=== PATIENT | male | born 1950 | race Caucasian/White ===

== ENCOUNTER 2016-08-30 13:35 | Emergency (ER) | payer OTHER ==
[~2016-08-30] VITALS: Ht 170.2 cm; Wt 74.1 kg
[~2016-08-30 13:35] MED LIST: AMBIEN5 MG PO; ANCEF,KEFZ2 GM/100 M IV; ATRIPLA1 TAB PO; Atripla PO; BACTRIM,SEPT1 TABLET PO; CIPRO500 MG PO; CLEOCIN300 MG PO; COD LIVER OIL118 ML PO; COUMADIN1 MG PO; COUMADIN3 MG PO; CRESTOR5 MG PO; FERROUS SULFAT325 MG PO; FOLIC ACID1 MG PO; Folvite PO; GABAPENTIN100 MG PO; HUMALOG100 UNIT/1 SC; HUMALOG100 UNIT/2 SC; INVanz IV; ISENTRESS400 MG PO; K-DUR20 MEQ PO; LANTUS 3 M100 UNITS/ SC; LANTUS 3 M100 UNITS1 SC; LANTUS100 UNIT/1 SQ; LEVEMIR FL100 UNIT/1 SC; LEVEMIR FL100 UNITS/ SC; LEVEMIR100 UNIT/2 SC; LEXAPRO10 MG PO; LIPITOR40 MG PO; LISINOPRIL10 MG PO; LISINOPRIL2.5 MG PO; LISINOPRIL5 MG PO; LOPERAMIDE2 MG PO; LOPRESSOR25 MG PO; Lexapro PO; NAFCIL 2 G2 GM/100 M IV; NAFCIL2 GM IV; NORVIR100 M1 PO; NOVOLOG PE100 UNITS/ SC; OMEPRAZOLE10 M1 PO; Omnicef PO; PREZISTA800 MG PO; Roxicet,Percocet 5/3 PO; SALINE FLUSH 1010 ML IV; TRIUMEQ TABLET1 EACH PO; TYLENOL EXTRA500 MG PO; VANCOMYCIN1.25 GM/25 IV; VITAMIN D1000 INTUN PO; VITAMIN D31000 UNIT PO; VITAMIN D310000 UNI1 PO; XARELTO20 MG PO; ZOLPIDEM TARTRAT5 MG PO
[2016-08-30 14:17] LABS: BASOPHIL COUNT 0.1 K/uL (0-0.1); EOSINOPHIL (%) 1.4 % (0-5); EOSINOPHIL COUNT 0.2 K/uL (0-0.3); HEMATOCRIT 42.5 % (38.0-50.0); IMMATURE GRANULOCYTE (%) 0.7 % (0.0-0.7); IMMATURE GRANULOCYTE COUNT 0.1 K/uL; INSTRUMENT ABS NEUTROPHIL CT 9.9 K/uL; LYMPHOCYTE COUNT 1.1 K/uL (1.0-2.8); MCH 29.6 PG (29.0-34.0); MCHC 33.4 G/DL (30.0-36.0); MCV 88.7 FL (86-99); MEAN PLAT.VOLUME 9.2 uM^3 (9.0-12.4); MONOCYTE (%) 7.1 % (3-12); MONOCYTE COUNT 0.9 K/uL (0-0.8); NEUTROPHIL (%) 81.3 % (45-76); NEUTROPHIL COUNT 9.9 K/uL (1.8-6.4); PLATELET COUNT 219 K/uL (156-360); RBC DIS.WIDTH-CV 13.4 % (11.8-14.6); RBC DIS.WIDTH-SD 43.6 % (39-53); RED BLOOD COUNT 4.79 M/uL (4.00-5.50); WHITE BLOOD COUNT 12.1 K/uL (4.1-10.2)
[2016-08-30 14:30] LABS: CHLORIDE 103 mEq/L (99-109); POTASSIUM 4.1 mEq/L (3.7-5.4); SODIUM 130 mEq/L (136-147)
[2016-08-30 14:32] LABS: GLUCOSE 104 mg/dL (70-99)
[2016-08-30 14:33] LABS: ANION GAP 8 MEQ/L (2-14)
[2016-08-30 14:36] LABS: ALKALINE PHOSPHATASE 56 IU/L (3-129); GFR ESTIMATE (CALCULATED) 54 mL/min/
[2016-08-30 14:37] LABS: UREA NITROGEN (BUN) 30 mg/dL (9-23)
[2016-08-30 15:15] LABS: ADD MIUA? YES; BILIRUBIN NEGATIVE; BLOOD SMALL; COLOR YELLOW ((YELLOW)); GLUCOSE (STRIP) NEGATIVE; KETONES 5; LEUKOCYTES NEGATIVE; NITRITE NEGATIVE; PROTEIN (STRIP) 30; SPECIFIC GRAVITY 1.017 (1.000-1.030); UROBILINOGEN 0.2 MG/DL (0.2-1.0)
[2016-08-30 15:31] LABS: BACTERIA NONE SEEN /HPF; EPITHELIAL CELLS NONE SEEN /HPF; MUCUS TRACE /LPF; RED BLOOD CELLS NONE SEEN /HPF (0-5); UCUL ADDED? NO; WHITE BLOOD CELLS 0-5 /HPF (0-5)
[2016-08-30] MEDS ORDERED: DOXYCYCLINE HY100 MG PO (16:48)
[2016-08-30 17:31] VITALS: BP 128/72
[2016-08-31] MEDS ORDERED: GABAPENTIN300 MG PO (11:53)
[2016-08-31] MEDS ORDERED: LEVEMIR FL100 UNIT/1 SC (11:54)
[2016-08-31] MEDS ORDERED: KLOR-CON M2020 MEQ PO (11:55)
[2016-08-31] MEDS ORDERED: LISINOPRIL2.5 MG PO (12:27)
== END 2016-08-30 17:38 | disposition home or self-care (01) ==
LOC: EME 13:35
PROVIDERS: Emergency Medicine
DX: J06.9 Acute upper respiratory infection, unspecified (principal); B20 Human immunodeficiency virus [HIV] disease; Z89.431 Acquired absence of right foot; Z79.01 Long term (current) use of anticoagulants; Z86.718 Personal history of other venous thrombosis and embolism; I10 Essential (primary) hypertension; E11.9 Type 2 diabetes mellitus without complications; Z89.422 Acquired absence of other left toe(s)
CPT/HCPCS: 71010; 80053; 81003; 83605; 85025; 87040; 87077; 87186; 87801; 93005; 99281; 99285

== ENCOUNTER 2016-08-31 09:47 | Inpatient (IN) | payer OTHER ==
[~2016-08-31] VITALS: Ht 172.7 cm; Wt 65.5 kg
[~2016-08-31 09:47] MED LIST changes: +DOXYCYCLINE HY100 MG PO
[2016-08-31 11:24] LABS: BASOPHIL COUNT 0.1 K/uL (0-0.1); EOSINOPHIL (%) 0.6 % (0-5); EOSINOPHIL COUNT 0.1 K/uL (0-0.3); HEMATOCRIT 40.5 % (38.0-50.0); IMMATURE GRANULOCYTE (%) 0.8 % (0.0-0.7); IMMATURE GRANULOCYTE COUNT 0.1 K/uL; INSTRUMENT ABS NEUTROPHIL CT 12.3 K/uL; LYMPHOCYTE COUNT 1.4 K/uL (1.0-2.8); MCH 30.2 PG (29.0-34.0); MCHC 33.8 G/DL (30.0-36.0); MCV 89.2 FL (86-99); MEAN PLAT.VOLUME 9.5 uM^3 (9.0-12.4); MONOCYTE (%) 7.1 % (3-12); MONOCYTE COUNT 1.1 K/uL (0-0.8); NEUTROPHIL COUNT 12.3 K/uL (1.8-6.4); PLATELET COUNT 192 K/uL (156-360); RBC DIS.WIDTH-CV 13.3 % (11.8-14.6); RBC DIS.WIDTH-SD 43.9 % (39-53); RED BLOOD COUNT 4.54 M/uL (4.00-5.50)
[2016-08-31 11:31] LABS: CHLORIDE 103 mEq/L (99-109); POTASSIUM 4.3 mEq/L (3.7-5.4); SODIUM 134 mEq/L (136-147)
[2016-08-31 11:32] LABS: GLUCOSE 104 mg/dL (70-99)
[2016-08-31 11:34] LABS: ANION GAP 13 MEQ/L (2-14)
[2016-08-31 11:36] LABS: GFR ESTIMATE (CALCULATED) > 59 mL/min/
[2016-08-31 11:37] LABS: UREA NITROGEN (BUN) 24 mg/dL (9-23)
[2016-08-31] MEDS ORDERED: GABAPENTIN300 MG PO (11:53)
[2016-08-31] MEDS ORDERED: LEVEMIR FL100 UNIT/1 SC (11:54)
[2016-08-31] MEDS ORDERED: KLOR-CON M2020 MEQ PO (11:55)
[2016-08-31] MEDS ORDERED: LISINOPRIL2.5 MG PO (12:27)
[2016-08-31 15:16] LABS: POINT-OF-CARE METER ID UU13113702
[2016-08-31 17:11] VITALS: BP 108/51
[2016-08-31 19:32] VITALS: BP 124/60
[2016-08-31 23:50] VITALS: BP 129/64
[2016-09-01 03:59] VITALS: BP 122/68
[2016-09-01 07:10] LABS: EOSINOPHIL (%) 2.1 % (0-5); EOSINOPHIL COUNT 0.2 K/uL (0-0.3); HEMATOCRIT 34.6 % (38.0-50.0); IMMATURE GRANULOCYTE COUNT 0.1 K/uL; INSTRUMENT ABS NEUTROPHIL CT 6.1 K/uL; LYMPHOCYTE COUNT 1.1 K/uL (1.0-2.8); MCH 30.4 PG (29.0-34.0); MCHC 33.2 G/DL (30.0-36.0); MCV 91.5 FL (86-99); MEAN PLAT.VOLUME 9.8 uM^3 (9.0-12.4); MONOCYTE COUNT 0.7 K/uL (0-0.8); NEUTROPHIL (%) 74.6 % (45-76); NEUTROPHIL COUNT 6.1 K/uL (1.8-6.4); PLATELET COUNT 177 K/uL (156-360); RBC DIS.WIDTH-CV 13.8 % (11.8-14.6); RBC DIS.WIDTH-SD 46.5 % (39-53); RED BLOOD COUNT 3.78 M/uL (4.00-5.50); WHITE BLOOD COUNT 8.1 K/uL (4.1-10.2)
[2016-09-01 07:32] LABS: ANION GAP 8 MEQ/L (2-14); CHLORIDE 106 MEQ/L (99-109); GFR ESTIMATE (CALCULATED) > 59 mL/min/; POTASSIUM 3.8 MEQ/L (3.7-5.4); SAMPLE HEMOLYSIS CHECK 0; SAMPLE ICTERIC CHECK 0; SAMPLE LIPEMIA CHECK 0; SODIUM 135 MEQ/L (136-147); UREA NITROGEN (BUN) 16 mg/dL (9-23)
[2016-09-01 07:37] LABS: GLUCOSE 57 mg/dL (70-99)
[2016-09-01 08:12] VITALS: BP 105/55; BP 108/55
[2016-09-01 11:50] VITALS: BP 140/68
[2016-09-01 16:32] VITALS: BP 110/52
[2016-09-01 17:03] LABS: POINT-OF-CARE METER ID UU14188577
[2016-09-01 19:45] VITALS: BP 126/59
[2016-09-01 23:21] VITALS: BP 148/74
[2016-09-02 07:21] LABS: POINT-OF-CARE METER ID UU14188577
[2016-09-02 08:27] VITALS: BP 167/79
[2016-09-02 12:23] VITALS: BP 152/72
[2016-09-02 15:41] VITALS: BP 146/71
[2016-09-02 19:49] VITALS: BP 128/79
[2016-09-02 21:40] LABS: POINT-OF-CARE METER ID UU14149397
[2016-09-02 23:43] VITALS: BP 130/68
[2016-09-03 03:34] VITALS: BP 123/58
[2016-09-03 06:38] LABS: GFR ESTIMATE (CALCULATED) > 59 mL/min/
[2016-09-03 07:08] LABS: POINT-OF-CARE METER ID UU14149397
[2016-09-03 07:57] VITALS: BP 128/74
[2016-09-03 11:53] VITALS: BP 138/64
[2016-09-03 15:53] VITALS: BP 136/72
[2016-09-03 16:27] LABS: POINT-OF-CARE METER ID UU14149397
[2016-09-03 20:34] VITALS: BP 146/74
[2016-09-03 21:26] LABS: POINT-OF-CARE METER ID UU14149397
[2016-09-04] VITALS (7 sets, daily range): BP systolic 124–176; BP diastolic 60–79
[2016-09-04 16:38] LABS: POINT-OF-CARE METER ID UU14149397
[2016-09-05 07:30] VITALS: BP 168/90
[2016-09-05 11:12] LABS: POINT-OF-CARE METER ID UU14149397
[2016-09-05 11:40] VITALS: BP 161/72
[2016-09-05 15:00] VITALS: BP 174/85
[2016-09-05 16:15] LABS: POINT-OF-CARE METER ID UU14188577
[2016-09-05 23:49] VITALS: BP 148/70
[2016-09-06 07:10] VITALS: BP 144/79
[2016-09-06 10:51] LABS: GFR ESTIMATE (CALCULATED) > 59 mL/min/
[2016-09-06 11:15] LABS: POINT-OF-CARE METER ID UU14188577
[2016-09-06] MEDS ORDERED: LEVEMIR100 UNIT/2 SC (14:57)
[2016-09-06] MEDS ORDERED: VANCOMYCIN1.25 GM/25 IV (14:58)
[2016-09-06 15:08] VITALS: BP 163/80
[2016-09-06 16:12] LABS: POINT-OF-CARE METER ID UU14188577
== END 2016-09-06 21:18 | disposition home health service (06) | DRG 853 ==
LOC: EME 09:47 → EDOF 14:00 → 3EAST 14:00
PROVIDERS: Emergency Medicine; Internal Medicine
PROC: 0HBMXZZ Excision of Right Foot Skin, External Approach (ICD-10-PCS; principal; 2016-09-01)
DX: R78.81 Bacteremia (principal); B95.62 Methicillin resistant Staphylococcus aureus infection as the cause of diseases classified elsewhere; E11.69 Type 2 diabetes mellitus with other specified complication; E87.2 Acidosis; I48.91 Unspecified atrial fibrillation; K76.9 Liver disease, unspecified; T81.89XA Other complications of procedures, not elsewhere classified, initial encounter; Y83.5 Amputation of limb(s) as the cause of abnormal reaction of the patient, or of later complication, without mention of misadventure at the time of the procedure; E78.5 Hyperlipidemia, unspecified; B20 Human immunodeficiency virus [HIV] disease; E11.42 Type 2 diabetes mellitus with diabetic polyneuropathy; Z89.431 Acquired absence of right foot; E13.69 Other specified diabetes mellitus with other specified complication; M86.671 Other chronic osteomyelitis, right ankle and foot; Z89.412 Acquired absence of left great toe; E11.621 Type 2 diabetes mellitus with foot ulcer; L97.529 Non-pressure chronic ulcer of other part of left foot with unspecified severity; Z86.718 Personal history of other venous thrombosis and embolism
CPT/HCPCS: 71010; 71020; 73630; 76937; 80048; 80053; 80202; 81003; 82565; 82948; 83605; 85025; 85651; 86140; 87040; 87077; 87186; 87801; 93005; 93306; 99281; 99285; A6260; J1815; J2405; J2543; J3370; J7030

== ENCOUNTER 2016-09-26 12:56 | Inpatient (IN) | payer OTHER ==
[~2016-09-26] VITALS: Ht 172.7 cm; Wt 70.6 kg
[~2016-09-26 12:56] MED LIST changes: +GABAPENTIN300 MG PO; +KLOR-CON M2020 MEQ PO
[2016-09-26 13:37] LABS: HEMATOCRIT 43.5 % (38.0-50.0); MCH 29.1 PG (29.0-34.0); MCHC 32.4 G/DL (30.0-36.0); MCV 89.9 FL (86-99); MEAN PLAT.VOLUME 9.8 uM^3 (9.0-12.4); PLATELET COUNT 203 K/uL (156-360); RBC DIS.WIDTH-CV 13.8 % (11.8-14.6); RED BLOOD COUNT 4.84 M/uL (4.00-5.50); WHITE BLOOD COUNT 19.2 K/uL (4.1-10.2)
[2016-09-26 13:43] LABS: CHLORIDE 97 mEq/L (99-109); SODIUM 137 mEq/L (136-147)
[2016-09-26 13:45] LABS: GLUCOSE 149 mg/dL (70-99)
[2016-09-26 13:46] LABS: ANION GAP 22 MEQ/L (2-14); POTASSIUM 3.4 mEq/L (3.7-5.4)
[2016-09-26 13:47] LABS: TOTAL BILIRUBIN 1.3 mg/dL (0.0-1.0)
[2016-09-26 13:48] LABS: ALKALINE PHOSPHATASE 84 IU/L (3-129)
[2016-09-26 13:49] LABS: GFR ESTIMATE (CALCULATED) 16 mL/min/
[2016-09-26 13:50] LABS: UREA NITROGEN (BUN) 50 mg/dL (9-23)
[2016-09-26 14:00] LABS: TROP-I INTERPRETATION NEGATIVE; TROPONIN-I 0.06 ng/mL (0.0-0.30)
[2016-09-26] MEDS ORDERED: LEVEMIR100 UNIT/2 SC ×2 (15:04)
[2016-09-26 20:00] VITALS: BP 101/59; BP 114/72
[2016-09-26 21:00] VITALS: BP 101/59
[2016-09-26 21:07] LABS: ANION GAP 14 MEQ/L (2-14); CHLORIDE 101 MEQ/L (99-109); GLUCOSE 161 mg/dL (70-99); MAGNESIUM 1.4 mg/dl (1.3-2.7); POTASSIUM 3.7 MEQ/L (3.7-5.4); SAMPLE HEMOLYSIS CHECK 0; SAMPLE ICTERIC CHECK 0; SAMPLE LIPEMIA CHECK 0; SODIUM 132 MEQ/L (136-147); UREA NITROGEN (BUN) 44 mg/dL (9-23)
[2016-09-26 21:13] LABS: HEMATOCRIT 30.4 % (38.0-50.0); MCH 30.9 PG (29.0-34.0); MCHC 34.2 G/DL (30.0-36.0); MCV 90.2 FL (86-99); RBC DIS.WIDTH-SD 45.1 % (39-53); RED BLOOD COUNT 3.37 M/uL (4.00-5.50); WHITE BLOOD COUNT 16.2 K/uL (4.1-10.2)
[2016-09-26 21:14] LABS: GFR ESTIMATE (CALCULATED) 23 mL/min/
[2016-09-26 21:33] LABS: PLATELET CLUMPS PRESENT - PLATELET COUNTS APPEARS DECREASED; PLATELET COUNT UNABLE TO REPORT K/uL (156-360)
[2016-09-26 21:36] LABS: METH RESISTANT S AUREUS PCR NEGATIVE (NEGATIVE)
[2016-09-26 21:42] LABS: PROBE CHECK PASS; SPECIMEN PROCESSING CONTROL PASS
[2016-09-26 22:00] VITALS: BP 99/59
[2016-09-26 22:45] LABS: POINT-OF-CARE METER ID UU13113803
[2016-09-26 23:00] VITALS: BP 99/59
[2016-09-27] VITALS (25 sets, daily range): BP systolic 71–150; BP diastolic 41–82
[2016-09-27 01:11] LABS: ADD MIUA? YES; BILIRUBIN NEGATIVE; BLOOD LARGE; COLOR YELLOW ((YELLOW)); GLUCOSE (STRIP) NEGATIVE; KETONES NEGATIVE; LEUKOCYTES NEGATIVE; NITRITE NEGATIVE; PROTEIN (STRIP) 30; SPECIFIC GRAVITY 1.008 (1.000-1.030); UROBILINOGEN 0.2 MG/DL (0.2-1.0)
[2016-09-27 01:21] LABS: BACTERIA RARE /HPF; EPITHELIAL CELLS RARE /HPF; HYALINE CASTS 0-5 /LPF; MUCUS TRACE /LPF; RED BLOOD CELLS 0-5 /HPF (0-5); UCUL ADDED? NO; WHITE BLOOD CELLS 0-5 /HPF (0-5)
[2016-09-27 05:32] LABS: HEMATOCRIT 29.8 % (38.0-50.0); MCH 30.1 PG (29.0-34.0); MCHC 33.6 G/DL (30.0-36.0); MCV 89.8 FL (86-99); RBC DIS.WIDTH-CV 14.1 % (11.8-14.6); RBC DIS.WIDTH-SD 45.9 % (39-53); RED BLOOD COUNT 3.32 M/uL (4.00-5.50)
[2016-09-27 05:38] LABS: TROP-I INTERPRETATION NEGATIVE; TROPONIN-I 0.06 ng/mL (0.0-0.30)
[2016-09-27 05:43] LABS: ANION GAP 11 MEQ/L (2-14); CHLORIDE 103 MEQ/L (99-109); GFR ESTIMATE (CALCULATED) 26 mL/min/; MAGNESIUM 1.6 mg/dl (1.3-2.7); POTASSIUM 3.3 MEQ/L (3.7-5.4); SAMPLE HEMOLYSIS CHECK 0; SAMPLE ICTERIC CHECK 0; SAMPLE LIPEMIA CHECK 0; SODIUM 133 MEQ/L (136-147); UREA NITROGEN (BUN) 42 mg/dL (9-23)
[2016-09-27 05:44] LABS: GLUCOSE 103 mg/dL (70-99)
[2016-09-27 06:28] LABS: PLATELET COUNT 117 K/uL (156-360)
[2016-09-27 09:31] LABS: C DIFF TOXIN NEGATIVE (NEGATIVE)
[2016-09-27 09:32] LABS: PROBE CHECK PASS; SPECIMEN PROCESSING CONTROL PASS
[2016-09-27 12:40] LABS: POINT-OF-CARE METER ID UU14162636
[2016-09-27 17:28] LABS: POINT-OF-CARE METER ID UU14162636
[2016-09-27 18:45] LABS: TROP-I INTERPRETATION NEGATIVE
[2016-09-27 18:57] LABS: CK-MB 5.2 ng/mL (0.0-4.9)
[2016-09-27 19:23] LABS: CREATINE KINASE 493 IU/L (1-294); TOTAL CK 493 IU/L (1-294)
[2016-09-27 22:24] LABS: POINT-OF-CARE METER ID UU14162636; POINT-OF-CARE USER ID RADDRS44
[2016-09-28] VITALS (14 sets, daily range): BP systolic 97–124; BP diastolic 59–69
[2016-09-28 01:35] LABS: TROP-I INTERPRETATION POSITIVE; TROPONIN-I 2.16 ng/mL (0.0-0.30)
[2016-09-28 01:47] LABS: CK-MB 8.9 ng/mL (0.0-4.9)
[2016-09-28 02:30] LABS: CREATINE KINASE 468 IU/L (1-294); TOTAL CK 468 IU/L (1-294)
[2016-09-28 03:57] LABS: POINT-OF-CARE METER ID UU14208751
[2016-09-28 08:05] LABS: EOSINOPHIL (%) 1.7 % (0-5); EOSINOPHIL COUNT 0.1 K/uL (0-0.3); HEMATOCRIT 29.8 % (38.0-50.0); IMMATURE GRANULOCYTE (%) 0.5 % (0.0-0.7); INSTRUMENT ABS NEUTROPHIL CT 4.3 K/uL; LYMPHOCYTE COUNT 0.9 K/uL (1.0-2.8); MCH 30.4 PG (29.0-34.0); MCHC 33.2 G/DL (30.0-36.0); MCV 91.4 FL (86-99); MEAN PLAT.VOLUME 9.9 uM^3 (9.0-12.4); MONOCYTE (%) 9.8 % (3-12); MONOCYTE COUNT 0.6 K/uL (0-0.8); NEUTROPHIL (%) 71.7 % (45-76); NEUTROPHIL COUNT 4.3 K/uL (1.8-6.4); PLATELET COUNT 107 K/uL (156-360); RBC DIS.WIDTH-CV 14.4 % (11.8-14.6); RBC DIS.WIDTH-SD 47.8 % (39-53); RED BLOOD COUNT 3.26 M/uL (4.00-5.50)
[2016-09-28 08:35] LABS: CK-MB 8.1 ng/mL (0.0-4.9); TROP-I INTERPRETATION POSITIVE; TROPONIN-I 2.54 ng/mL (0.0-0.30)
[2016-09-28 09:24] LABS: POINT-OF-CARE METER ID UU13113731
[2016-09-28 10:32] LABS: ALKALINE PHOSPHATASE 50 IU/L (3-129); ANION GAP 11 MEQ/L (2-14); CHLORIDE 107 MEQ/L (99-109); CREATINE KINASE 290 IU/L (1-294); DIRECT BILIRUBIN 0.2 mg/dL (0.0-0.3); GFR ESTIMATE (CALCULATED) 30 mL/min/; GLUCOSE 85 mg/dL (70-99); POTASSIUM 3.6 MEQ/L (3.7-5.4); SAMPLE HEMOLYSIS CHECK 0; SAMPLE ICTERIC CHECK 0; SAMPLE LIPEMIA CHECK 0; SODIUM 138 MEQ/L (136-147); TOTAL BILIRUBIN 0.7 MG/DL (0.0-1.0); TOTAL CK 290 IU/L (1-294); UREA NITROGEN (BUN) 32 mg/dL (9-23)
[2016-09-28 11:30] LABS: POINT-OF-CARE METER ID UU14208751
[2016-09-28 13:17] LABS: CREATINE KINASE 215 IU/L (1-294); TOTAL CK 215 IU/L (1-294); TROP-I INTERPRETATION POSITIVE; TROPONIN-I 1.81 ng/mL (0.0-0.30)
[2016-09-28 18:57] LABS: POINT-OF-CARE METER ID UU13113731
[2016-09-29 04:45] LABS: HEMATOCRIT 28.8 % (38.0-50.0); MCH 29.8 PG (29.0-34.0); MCHC 33.7 G/DL (30.0-36.0); MCV 88.3 FL (86-99); MEAN PLAT.VOLUME 10.3 uM^3 (9.0-12.4); PLATELET COUNT 130 K/uL (156-360); RBC DIS.WIDTH-SD 45.1 % (39-53); RED BLOOD COUNT 3.26 M/uL (4.00-5.50); WHITE BLOOD COUNT 6.3 K/uL (4.1-10.2)
[2016-09-29 05:06] LABS: POTASSIUM 3.5 mEq/L (3.7-5.4); SODIUM 135 mEq/L (136-147)
[2016-09-29 05:07] LABS: MAGNESIUM 1.5 mg/dL (1.3-2.7)
[2016-09-29 05:10] LABS: ANION GAP 9 MEQ/L (2-14)
[2016-09-29 05:12] LABS: GFR ESTIMATE (CALCULATED) 34 mL/min/
[2016-09-29 05:13] LABS: UREA NITROGEN (BUN) 28 mg/dL (9-23)
[2016-09-29 05:23] LABS: CHLORIDE 107 mEq/L (99-109); GLUCOSE 193 mg/dL (70-99)
[2016-09-29 08:00] VITALS: BP 152/81
[2016-09-29 10:00] VITALS: BP 124/65
[2016-09-29 11:53] LABS: POINT-OF-CARE METER ID UU13113731
[2016-09-29 12:00] VITALS: BP 149/76
[2016-09-29 15:40] LABS: POINT-OF-CARE METER ID UU14208750
[2016-09-29 19:11] VITALS: BP 154/70
[2016-09-29 23:40] VITALS: BP 147/70
[2016-09-30] VITALS (7 sets, daily range): BP systolic 140–187; BP diastolic 65–89
[2016-09-30 06:07] LABS: HEMATOCRIT 30.9 % (38.0-50.0); MCHC 32.4 G/DL (30.0-36.0); MCV 89.6 FL (86-99); MEAN PLAT.VOLUME 9.9 uM^3 (9.0-12.4); PLATELET COUNT 157 K/uL (156-360); RBC DIS.WIDTH-CV 14.2 % (11.8-14.6); RED BLOOD COUNT 3.45 M/uL (4.00-5.50)
[2016-09-30 06:31] LABS: POINT-OF-CARE METER ID UU14208750
[2016-09-30 06:33] LABS: ALKALINE PHOSPHATASE 45 IU/L (3-129); ANION GAP 7 MEQ/L (2-14); ANION GAP 9 MEQ/L (2-14); C-REACTIVE PROTEIN 84.4 MG/L (0-10); CHLORIDE 107 MEQ/L (99-109); GFR ESTIMATE (CALCULATED) 38 mL/min/; GLUCOSE 105 mg/dL (70-99); MAGNESIUM 1.6 mg/dl (1.3-2.7); POTASSIUM 3.5 MEQ/L (3.7-5.4); POTASSIUM 3.6 MEQ/L (3.7-5.4); SAMPLE HEMOLYSIS CHECK 0; SAMPLE ICTERIC CHECK 0; SAMPLE LIPEMIA CHECK 0; SODIUM 139 MEQ/L (136-147); SODIUM 141 MEQ/L (136-147); TOTAL BILIRUBIN 0.3 MG/DL (0.0-1.0); UREA NITROGEN (BUN) 18 mg/dL (9-23)
[2016-09-30 08:27] LABS: ERTH.SED.RATE 64 MM/HR (0-20)
[2016-09-30 08:54] LABS: POINT-OF-CARE METER ID UU13113675
[2016-09-30 11:47] LABS: POINT-OF-CARE METER ID UU14208750
[2016-09-30 16:29] LABS: POINT-OF-CARE METER ID UU14208750
[2016-09-30 21:26] LABS: POINT-OF-CARE METER ID UU14208750
[2016-10-01 03:55] VITALS: BP 158/83
[2016-10-01 06:14] LABS: MCH 30.2 PG (29.0-34.0); MCHC 33.4 G/DL (30.0-36.0); MCV 90.4 FL (86-99); MEAN PLAT.VOLUME 10.1 uM^3 (9.0-12.4); PLATELET COUNT 177 K/uL (156-360); RBC DIS.WIDTH-SD 46.3 % (39-53); RED BLOOD COUNT 3.54 M/uL (4.00-5.50); WHITE BLOOD COUNT 8.1 K/uL (4.1-10.2)
[2016-10-01 06:50] LABS: ALKALINE PHOSPHATASE 48 IU/L (3-129); ANION GAP 10 MEQ/L (2-14); CHLORIDE 106 MEQ/L (99-109); GFR ESTIMATE (CALCULATED) 40 mL/min/; GLUCOSE 79 mg/dL (70-99); POTASSIUM 3.4 MEQ/L (3.7-5.4); SAMPLE HEMOLYSIS CHECK 0; SAMPLE ICTERIC CHECK 0; SAMPLE LIPEMIA CHECK 0; SODIUM 141 MEQ/L (136-147); UREA NITROGEN (BUN) 17 mg/dL (9-23)
[2016-10-01 06:57] LABS: TOTAL BILIRUBIN 0.4 MG/DL (0.0-1.0)
[2016-10-01 07:07] LABS: MAGNESIUM 1.5 mg/dl (1.3-2.7)
[2016-10-01 07:50] VITALS: BP 176/84
[2016-10-01 13:55] VITALS: BP 179/89
[2016-10-01 20:36] LABS: POINT-OF-CARE METER ID UU14208750
[2016-10-02 01:20] VITALS: BP 168/76
[2016-10-02 06:55] LABS: POINT-OF-CARE METER ID UU14208750
[2016-10-02 06:58] LABS: HEMATOCRIT 33.9 % (38.0-50.0); MCH 30.1 PG (29.0-34.0); MCHC 33.3 G/DL (30.0-36.0); MCV 90.2 FL (86-99); MEAN PLAT.VOLUME 9.9 uM^3 (9.0-12.4); PLATELET COUNT 199 K/uL (156-360); RBC DIS.WIDTH-CV 13.8 % (11.8-14.6); RBC DIS.WIDTH-SD 45.1 % (39-53); RED BLOOD COUNT 3.76 M/uL (4.00-5.50); WHITE BLOOD COUNT 8.1 K/uL (4.1-10.2)
[2016-10-02 07:20] LABS: ANION GAP 11 MEQ/L (2-14); CHLORIDE 103 MEQ/L (99-109); GFR ESTIMATE (CALCULATED) 40 mL/min/; MAGNESIUM 1.5 mg/dl (1.3-2.7); POTASSIUM 3.6 MEQ/L (3.7-5.4); SAMPLE HEMOLYSIS CHECK 0; SAMPLE ICTERIC CHECK 0; SAMPLE LIPEMIA CHECK 0; SODIUM 138 MEQ/L (136-147); UREA NITROGEN (BUN) 17 mg/dL (9-23)
[2016-10-02 07:21] LABS: GLUCOSE 174 mg/dL (70-99)
[2016-10-02 07:48] VITALS: BP 124/79
[2016-10-02 11:21] VITALS: BP 181/87
[2016-10-02 15:02] VITALS: BP 170/83
[2016-10-03] VITALS: BP 144/69
[2016-10-03 07:02] LABS: HEMATOCRIT 34.2 % (38.0-50.0); MCH 29.9 PG (29.0-34.0); MCHC 33.6 G/DL (30.0-36.0); MCV 89.1 FL (86-99); MEAN PLAT.VOLUME 9.6 uM^3 (9.0-12.4); PLATELET COUNT 230 K/uL (156-360); RBC DIS.WIDTH-CV 13.9 % (11.8-14.6); RBC DIS.WIDTH-SD 44.6 % (39-53); RED BLOOD COUNT 3.84 M/uL (4.00-5.50); WHITE BLOOD COUNT 8.3 K/uL (4.1-10.2)
[2016-10-03 07:25] LABS: ANION GAP 9 MEQ/L (2-14); CHLORIDE 104 MEQ/L (99-109); GFR ESTIMATE (CALCULATED) 43 mL/min/; GLUCOSE 121 mg/dL (70-99); MAGNESIUM 1.6 mg/dl (1.3-2.7); SAMPLE HEMOLYSIS CHECK 0; SAMPLE ICTERIC CHECK 0; SAMPLE LIPEMIA CHECK 0; SODIUM 140 MEQ/L (136-147); UREA NITROGEN (BUN) 18 mg/dL (9-23)
[2016-10-03 07:42] VITALS: BP 172/82
[2016-10-03] MEDS ORDERED: FAMOTIDINE20 MG PO (07:54)
[2016-10-03] MEDS ORDERED: DOXYCYCLINE HY100 M3 PO (07:55)
[2016-10-03] MEDS ORDERED: ROCEPHIN 2 GM VI2 GM IM (07:56)
[2016-10-03 11:24] LABS: POINT-OF-CARE METER ID UU14208750
== END 2016-10-03 15:46 | DRG 871 ==
LOC: EME 12:56 → EDOF 17:11 → 2EAST 17:11 → 4WEST 17:11 → 2EAST 09-29 13:56
PROVIDERS: Emergency Medicine; Internal Medicine; Internal Medicine Nephrology
DX: A41.9 Sepsis, unspecified organism (principal); Z21 Asymptomatic human immunodeficiency virus [HIV] infection status; M86.9 Osteomyelitis, unspecified; M86.171 Other acute osteomyelitis, right ankle and foot; I48.0 Paroxysmal atrial fibrillation; T81.89XA Other complications of procedures, not elsewhere classified, initial encounter; N17.9 Acute kidney failure, unspecified; I21.4 Non-ST elevation (NSTEMI) myocardial infarction; E11.621 Type 2 diabetes mellitus with foot ulcer; I27.2 Other secondary pulmonary hypertension; L02.611 Cutaneous abscess of right foot; I48.3 Typical atrial flutter; E78.5 Hyperlipidemia, unspecified; I10 Essential (primary) hypertension; K21.9 Gastro-esophageal reflux disease without esophagitis; Z87.820 Personal history of traumatic brain injury; L03.115 Cellulitis of right lower limb; R94.31 Abnormal electrocardiogram [ECG] [EKG]; I25.10 Atherosclerotic heart disease of native coronary artery without angina pectoris; E78.2 Mixed hyperlipidemia; E87.6 Hypokalemia; F32.9 Major depressive disorder, single episode, unspecified; Z86.14 Personal history of Methicillin resistant Staphylococcus aureus infection; Z82.49 Family history of ischemic heart disease and other diseases of the circulatory system; Z86.718 Personal history of other venous thrombosis and embolism; Z89.411 Acquired absence of right great toe; Z79.899 Other long term (current) drug therapy; Z89.421 Acquired absence of other right toe(s); D63.8 Anemia in other chronic diseases classified elsewhere; E86.1 Hypovolemia; E11.628 Type 2 diabetes mellitus with other skin complications; R00.1 Bradycardia, unspecified
CPT/HCPCS: 71010; 73718; 76937; 80048; 80048 91; 80053; 80076; 81003; 82550; 82550 91; 82553; 82948; 83605; 83735; 84100; 84484; 85025; 85027; 85651; 86140; 87040; 87070; 87075; 87077; 87185; 87186; 87205; 87493; 87641; 87801; 88305; 88311; 93005; 93306; 93971; 94760; 94799; 99202; 99281; 99285; J0696; J0878; J1815; J2250; J2405; J2543; J2550; J3370; J3475; J3480; J7030; J7040; J7050; J7120; S0020; S0028

== ENCOUNTER 2016-10-08 12:48 | Emergency (ER) | payer OTHER ==
[~2016-10-08] VITALS: Ht 172.7 cm; Wt 64.1 kg
[~2016-10-08 12:48] MED LIST changes: +DOXYCYCLINE HY100 M3 PO; +FAMOTIDINE20 MG PO; +ROCEPHIN 2 GM VI2 GM IM
[2016-10-08 16:35] VITALS: BP 144/78
== END 2016-10-08 16:37 ==
LOC: EME 12:48
DX: T82.524A Displacement of infusion catheter, initial encounter (principal); Y84.8 Other medical procedures as the cause of abnormal reaction of the patient, or of later complication, without mention of misadventure at the time of the procedure; Z21 Asymptomatic human immunodeficiency virus [HIV] infection status; Z79.01 Long term (current) use of anticoagulants
CPT/HCPCS: 71010; 73060; 99281; 99282

== ENCOUNTER 2017-03-30 08:36 | Day surgery (SDC) | payer OTHER ==
[~2017-03-30] VITALS: Ht 172.7 cm; Wt 68.5 kg
[~2017-03-30 08:36] MED LIST changes: +JANUVIA100 MG PO; +SODIUM CHLORIDE1 G1 PO
[2017-03-30 10:05] VITALS: BP 146/81
[2017-03-30 15:05] VITALS: BP 148/73
[2017-03-30 15:33] VITALS: BP 148/78
== END 2017-03-30 15:42 | disposition home or self-care (01) ==
LOC: SDC 08:36
PROVIDERS: Surgery
PROC: 0QBN0ZZ Excision of Right Metatarsal, Open Approach (ICD-10-PCS; principal; 2017-03-30)
DX: E11.621 Type 2 diabetes mellitus with foot ulcer (principal); L97.516 Non-pressure chronic ulcer of other part of right foot with bone involvement without evidence of necrosis; Z89.412 Acquired absence of left great toe; Z89.411 Acquired absence of right great toe; Z89.421 Acquired absence of other right toe(s); D63.8 Anemia in other chronic diseases classified elsewhere; E78.00 Pure hypercholesterolemia, unspecified; Z86.72 Personal history of thrombophlebitis; B20 Human immunodeficiency virus [HIV] disease; F32.9 Major depressive disorder, single episode, unspecified; Z79.4 Long term (current) use of insulin; Z79.01 Long term (current) use of anticoagulants; Z82.49 Family history of ischemic heart disease and other diseases of the circulatory system; Z82.0 Family history of epilepsy and other diseases of the nervous system; Z82.5 Family history of asthma and other chronic lower respiratory diseases
CPT/HCPCS: 82948; 87070; 87205; 87641; J0690; J2250; J2405; J3010; S0020

== ENCOUNTER 2017-08-14 12:35 | Inpatient (IN) | payer OTHER ==
[~2017-08-14] VITALS: Ht 172.7 cm; Wt 68.3 kg
[2017-08-14 13:27] LABS: APPEARANCE CLEAR ((CLEAR)); BILIRUBIN NEGATIVE; BLOOD NEGATIVE; COLOR YELLOW ((YELLOW)); GLUCOSE (STRIP) NEGATIVE; KETONES 5; LEUKOCYTES NEGATIVE; NITRITE NEGATIVE; PROTEIN (STRIP) 100; SPECIFIC GRAVITY 1.021 (1.000-1.030)
[2017-08-14 13:50] LABS: BACTERIA NONE SEEN /HPF; EPITHELIAL CELLS NONE SEEN /HPF; MUCUS NONE SEEN /LPF; RED BLOOD CELLS 0-5 /HPF (0-5); UCUL ADDED? NO; WHITE BLOOD CELLS NONE SEEN /HPF (0-5)
[2017-08-14 13:52] LABS: CHLORIDE 99 mEq/L (99-109); POTASSIUM 5.1 mEq/L (3.7-5.4); SODIUM 133 mEq/L (136-147)
[2017-08-14 13:58] LABS: CREATININE 1.7 mg/dL (0.6-1.3); GFR ESTIMATE (CALCULATED) 43 mL/min/ (58.99-99999)
[2017-08-14 14:02] LABS: ALBUMIN 4.1 g/dL (3.2-4.8); GLUCOSE 218 mg/dL (70-99); UREA NITROGEN (BUN) 43 mg/dL (9-23)
[2017-08-14 14:05] LABS: TOTAL PROTEIN 7.1 g/dL (6.4-8.3)
[2017-08-14 14:07] LABS: TOTAL BILIRUBIN 0.9 mg/dL (0.0-1.0)
[2017-08-14 14:08] LABS: ALKALINE PHOSPHATASE 65 IU/L (3-129)
[2017-08-14 14:09] LABS: INTER. NORMALIZED RATIO 2.1
[2017-08-14 14:10] LABS: AST (GOT) 13 IU/L (2-34)
[2017-08-14 14:11] LABS: ALT (GPT) 11 IU/L (3-49); LIPASE 19 U/L (1.0-51.0)
[2017-08-14 14:17] LABS: TROP-I INTERPRETATION NEGATIVE; TROPONIN-I < 0.01 ng/mL (0.0-0.30)
[2017-08-14 14:25] LABS: BASOPHIL (%) 0.5 % (0-1); BASOPHIL COUNT 0.1 K/uL (0-0.1); EOSINOPHIL (%) 0.4 % (0-5); EOSINOPHIL COUNT 0.1 K/uL (0-0.3); HEMATOCRIT 43.5 % (38.0-50.0); HEMOGLOBIN 14.8 G/DL (12.5-16.6); IMMATURE GRANULOCYTE (%) 0.6 % (0.0-0.7); LYMPHOCYTE (%) 10.4 % (15-42); LYMPHOCYTE COUNT 1.4 K/uL (1.0-2.8); MCH 31.2 PG (29.0-34.0); MCV 91.8 FL (86-99); MONOCYTE (%) 8.6 % (3-12); MONOCYTE COUNT 1.2 K/uL (0-0.8); NEUTROPHIL (%) 79.5 % (45-76); PLATELET COUNT 155 K/uL (156-360); RBC DIS.WIDTH-CV 13.3 % (11.8-14.6); RBC DIS.WIDTH-SD 45.2 % (39-53); RED BLOOD COUNT 4.74 M/uL (4.00-5.50); WHITE BLOOD COUNT 13.8 K/uL (4.1-10.2)
[2017-08-14] MEDS ORDERED: METFORMIN HCL500 MG PO (15:33)
[2017-08-14] MEDS ORDERED: LEVEMIR FL100 UNIT/1 SC (15:34)
[2017-08-14] MEDS ORDERED: METOPROLOL TART25 MG PO (15:35)
[2017-08-14] MEDS ORDERED: DOXYCYCLINE MO100 M1 PO (15:45)
[2017-08-14] MEDS ORDERED: VITAMIN D31000 UNI2 PO (15:46)
[2017-08-14] MEDS ORDERED: SIMVASTATIN20 MG PO (15:46)
[2017-08-14] MEDS ORDERED: ESCITALOPRAM OX10 MG PO (15:47)
[2017-08-14] MEDS ORDERED: IRON325 M1 PO (15:48)
[2017-08-14 18:41] VITALS: BP 132/71
[2017-08-14 19:35] VITALS: BP 130/69
[2017-08-14 23:28] VITALS: BP 106/65
[2017-08-15] VITALS (7 sets, daily range): BP systolic 99–136; BP diastolic 55–74
[2017-08-15 06:35] LABS: BASOPHIL (%) 0.9 % (0-1); BASOPHIL COUNT 0.1 K/uL (0-0.1); EOSINOPHIL (%) 2.3 % (0-5); EOSINOPHIL COUNT 0.2 K/uL (0-0.3); HEMATOCRIT 39.3 % (38.0-50.0); HEMOGLOBIN 12.9 G/DL (12.5-16.6); IMMATURE GRANULOCYTE (%) 0.8 % (0.0-0.7); LYMPHOCYTE (%) 18.1 % (15-42); LYMPHOCYTE COUNT 1.6 K/uL (1.0-2.8); MCH 30.6 PG (29.0-34.0); MCHC 32.8 G/DL (30.0-36.0); MCV 93.1 FL (86-99); MONOCYTE (%) 9.8 % (3-12); MONOCYTE COUNT 0.9 K/uL (0-0.8); NEUTROPHIL (%) 68.1 % (45-76); NEUTROPHIL COUNT 5.9 K/uL (1.8-6.4); PLATELET COUNT 133 K/uL (156-360); RBC DIS.WIDTH-CV 13.6 % (11.8-14.6); RBC DIS.WIDTH-SD 45.9 % (39-53); RED BLOOD COUNT 4.22 M/uL (4.00-5.50); WHITE BLOOD COUNT 8.7 K/uL (4.1-10.2)
[2017-08-15 07:02] LABS: CHLORIDE 106 MEQ/L (99-109); CREATININE 1.4 MG/DL (0.6-1.3); GFR ESTIMATE (CALCULATED) 53 mL/min/ (58.99-99999); GLUCOSE 178 mg/dL (70-99); POTASSIUM 4.4 MEQ/L (3.7-5.4); SODIUM 138 MEQ/L (136-147); UREA NITROGEN (BUN) 29 mg/dL (9-23)
[2017-08-16 05:37] VITALS: BP 124/68
[2017-08-16 06:38] LABS: C-REACTIVE PROTEIN 148.7 MG/L (0-10); CHLORIDE 107 MEQ/L (99-109); CREATININE 1.3 MG/DL (0.6-1.3); GFR ESTIMATE (CALCULATED) 58 mL/min/ (58.99-99999); GLUCOSE 207 mg/dL (70-99); POTASSIUM 4.2 MEQ/L (3.7-5.4); SODIUM 137 MEQ/L (136-147); UREA NITROGEN (BUN) 25 mg/dL (9-23)
[2017-08-16 08:46] VITALS: BP 131/76
[2017-08-16 11:23] VITALS: BP 117/67
[2017-08-16 15:41] VITALS: BP 145/72
[2017-08-16 19:58] VITALS: BP 156/73
[2017-08-17 00:20] VITALS: BP 125/67
[2017-08-17 05:39] VITALS: BP 130/70
[2017-08-17 08:05] VITALS: BP 157/76
[2017-08-17 11:45] VITALS: BP 133/75
[2017-08-17 15:41] VITALS: BP 136/80
[2017-08-17 19:30] VITALS: BP 164/82
[2017-08-18 03:37] VITALS: BP 131/61
[2017-08-18 07:48] VITALS: BP 116/61
[2017-08-18 12:03] VITALS: BP 129/78
[2017-08-18 15:41] VITALS: BP 160/82
[2017-08-18 19:27] VITALS: BP 162/83
[2017-08-19 03:08] VITALS: BP 133/61
[2017-08-19 07:00] VITALS: BP 152/74
[2017-08-19 09:10] VITALS: BP 142/78
[2017-08-19 15:38] VITALS: BP 120/64
[2017-08-19 19:41] VITALS: BP 134/65
[2017-08-20] VITALS (7 sets, daily range): BP systolic 108–139; BP diastolic 58–74
[2017-08-21 04:00] VITALS: BP 119/63
[2017-08-21 08:31] VITALS: BP 106/62
[2017-08-21 11:31] VITALS: BP 129/69
[2017-08-21 16:17] VITALS: BP 129/59
[2017-08-21 19:30] VITALS: BP 112/54
[2017-08-22 03:14] VITALS: BP 110/58
[2017-08-22 07:20] LABS: BASOPHIL (%) 0.8 % (0-1); BASOPHIL COUNT 0.1 K/uL (0-0.1); EOSINOPHIL (%) 4.2 % (0-5); EOSINOPHIL COUNT 0.3 K/uL (0-0.3); HEMATOCRIT 37.8 % (38.0-50.0); HEMOGLOBIN 12.6 G/DL (12.5-16.6); IMMATURE GRANULOCYTE (%) 0.5 % (0.0-0.7); LYMPHOCYTE (%) 19.8 % (15-42); LYMPHOCYTE COUNT 1.2 K/uL (1.0-2.8); MCH 30.7 PG (29.0-34.0); MCHC 33.3 G/DL (30.0-36.0); MONOCYTE (%) 11.9 % (3-12); MONOCYTE COUNT 0.7 K/uL (0-0.8); NEUTROPHIL (%) 62.8 % (45-76); NEUTROPHIL COUNT 3.9 K/uL (1.8-6.4); PLATELET COUNT 133 K/uL (156-360); RBC DIS.WIDTH-CV 13.5 % (11.8-14.6); RBC DIS.WIDTH-SD 46.1 % (39-53); RED BLOOD COUNT 4.11 M/uL (4.00-5.50); WHITE BLOOD COUNT 6.2 K/uL (4.1-10.2)
[2017-08-22 09:25] VITALS: BP 101/61
[2017-08-22 11:49] VITALS: BP 101/57
[2017-08-22 13:42] LABS: CHLORIDE 101 MEQ/L (99-109); CREATININE 1.6 MG/DL (0.6-1.3); GFR ESTIMATE (CALCULATED) 46 mL/min/ (58.99-99999); GLUCOSE 242 mg/dL (70-99); POTASSIUM 3.9 MEQ/L (3.7-5.4); SODIUM 134 MEQ/L (136-147); UREA NITROGEN (BUN) 30 mg/dL (9-23)
[2017-08-22 18:20] VITALS: BP 127/66
[2017-08-22 19:20] VITALS: BP 131/76
[2017-08-22 23:14] VITALS: BP 133/59
[2017-08-23 03:05] VITALS: BP 121/62
[2017-08-23 06:03] LABS: BASOPHIL (%) 1.1 % (0-1); BASOPHIL COUNT 0.1 K/uL (0-0.1); EOSINOPHIL (%) 6.5 % (0-5); EOSINOPHIL COUNT 0.3 K/uL (0-0.3); HEMATOCRIT 36.2 % (38.0-50.0); IMMATURE GRANULOCYTE (%) 0.8 % (0.0-0.7); LYMPHOCYTE (%) 26.8 % (15-42); LYMPHOCYTE COUNT 1.4 K/uL (1.0-2.8); MCH 30.5 PG (29.0-34.0); MCHC 33.1 G/DL (30.0-36.0); MCV 92.1 FL (86-99); MONOCYTE (%) 12.7 % (3-12); MONOCYTE COUNT 0.7 K/uL (0-0.8); NEUTROPHIL (%) 52.1 % (45-76); NEUTROPHIL COUNT 2.7 K/uL (1.8-6.4); PLATELET COUNT 146 K/uL (156-360); RBC DIS.WIDTH-CV 13.3 % (11.8-14.6); RBC DIS.WIDTH-SD 45.5 % (39-53); RED BLOOD COUNT 3.93 M/uL (4.00-5.50); WHITE BLOOD COUNT 5.3 K/uL (4.1-10.2)
[2017-08-23 06:45] LABS: CHLORIDE 106 MEQ/L (99-109); CREATININE 1.4 MG/DL (0.6-1.3); GFR ESTIMATE (CALCULATED) 53 mL/min/ (58.99-99999); GLUCOSE 173 mg/dL (70-99); POTASSIUM 4.2 MEQ/L (3.7-5.4); SODIUM 136 MEQ/L (136-147); UREA NITROGEN (BUN) 28 mg/dL (9-23)
[2017-08-23 08:23] VITALS: BP 132/67
[2017-08-23 12:00] VITALS: BP 141/68
[2017-08-23 15:25] VITALS: BP 135/66
[2017-08-23 19:45] VITALS: BP 152/86
[2017-08-24 00:27] VITALS: BP 111/58
[2017-08-24 03:29] VITALS: BP 142/78
[2017-08-24 06:38] LABS: CHLORIDE 108 MEQ/L (99-109); CREATININE 1.2 MG/DL (0.6-1.3); GFR ESTIMATE (CALCULATED) > 59 mL/min/ (58.99-99999); GLUCOSE 176 mg/dL (70-99); POTASSIUM 4.6 MEQ/L (3.7-5.4); SODIUM 136 MEQ/L (136-147); UREA NITROGEN (BUN) 18 mg/dL (9-23)
[2017-08-24 08:05] VITALS: BP 151/83
[2017-08-24 12:05] VITALS: BP 143/68
[2017-08-24] MEDS ORDERED: LEVEMIR100 UNIT/2 SC (15:21)
[2017-08-24] MEDS ORDERED: MERREM1 GM IV (15:23)
[2017-08-24] MEDS ORDERED: TYLENOL EXTRA500 MG PO (15:24)
== END 2017-08-24 16:36 | DRG 856 ==
LOC: EME 12:35 → 3EAST 16:22 → EDOF 16:22 → ENRESERV 16:46 → 3EAST 18:20
PROVIDERS: Internal Medicine; Physician Assistant
PROC: 0QBN0ZZ Excision of Right Metatarsal, Open Approach (ICD-10-PCS; principal; 2017-08-18)
DX: T81.4XXA Infection following a procedure, initial encounter (principal); A41.89 Other specified sepsis; E11.69 Type 2 diabetes mellitus with other specified complication; M86.671 Other chronic osteomyelitis, right ankle and foot; B95.5 Unspecified streptococcus as the cause of diseases classified elsewhere; R65.20 Severe sepsis without septic shock; N17.9 Acute kidney failure, unspecified; B20 Human immunodeficiency virus [HIV] disease; L02.611 Cutaneous abscess of right foot; E11.628 Type 2 diabetes mellitus with other skin complications; L03.115 Cellulitis of right lower limb; I25.10 Atherosclerotic heart disease of native coronary artery without angina pectoris; E11.621 Type 2 diabetes mellitus with foot ulcer; L97.519 Non-pressure chronic ulcer of other part of right foot with unspecified severity; I48.91 Unspecified atrial fibrillation; I48.92 Unspecified atrial flutter; D63.8 Anemia in other chronic diseases classified elsewhere; E11.42 Type 2 diabetes mellitus with diabetic polyneuropathy; I10 Essential (primary) hypertension; E78.5 Hyperlipidemia, unspecified; E55.9 Vitamin D deficiency, unspecified; I25.2 Old myocardial infarction; Z79.4 Long term (current) use of insulin; Z79.01 Long term (current) use of anticoagulants; Z79.899 Other long term (current) drug therapy; Z86.14 Personal history of Methicillin resistant Staphylococcus aureus infection; Z86.718 Personal history of other venous thrombosis and embolism; Z89.431 Acquired absence of right foot; Z89.412 Acquired absence of left great toe; Z60.2 Problems related to living alone; Z82.41 Family history of sudden cardiac death
CPT/HCPCS: 36415; 71046; 73630; 73720; 76937; 80048; 80053; 80202; 81003; 82948; 83605; 83690; 84484; 85025; 85027; 85610; 85651; 85730; 86140; 86355 90; 86359 90; 86360 90; 87040; 87070; 87075; 87076; 87077; 87186; 87205; 87536; 87801; 93005; 99281; 99284; J0690; J1650; J1815; J2185; J2250; J2405; J2543; J3010; J3370; J7030; J7050; S0030